=== PATIENT | female | born 1975 | race Caucasian/White ===

== ENCOUNTER 2024-02-10 13:26 | Inpatient (IN) | payer MEDICAID, SELFPAY ==
--- NOTE | ~2024-02-10 | CT_ITS ---
EXAMINATION: CT ABDOMEN AND PELVIS WITH CONTRAST CLINICAL INFORMATION: Abdominal pain COMPARISON: None TECHNIQUE: Multiple axial images were obtained from the superior aspect of the liver through the pubic symphysis after the administration of 100 mL of intravenous Omnipaque. Images were evaluated on independent dedicated 3-D workstation and 3-D images were reconstructed with concurrent radiologist supervision and subsequently interpreted. Oral contrast was not administered. This CT examination was performed using dose optimization techniques as appropriate, variously including the following: *Automated exposure control *Adjustment of mA and/or kV according to patient size (this includes techniques or standardized protocols for targeted exams where dose is matched to indication/reason for exam; i.e. extremities or head) *Use of iterative reconstruction technique DLP: 910 mGy-cm FINDINGS: LUNG BASES: The visualized lung bases are clear. CARDIOMEDIASTINUM: The visualized heart is normal in size without pericardial effusion. No coronary artery calcification. LIVER: Homogeneous in attenuation. Normal in size. GALLBLADDER: Noninflamed. BILIARY SYSTEM: No intrahepatic or extrahepatic biliary dilation. PANCREAS: Homogeneous in attenuation. SPLEEN: Normal in size. GENITOURINARY: Bilateral kidneys demonstrate symmetric enhancement. No perinephric fluid collection. No renal calculi. No hydroureteronephrosis. ADRENAL GLANDS: Unremarkable. REPRODUCTIVE: Uterus and and bilateral adnexa are unremarkable. GASTROINTESTINAL: The visualized alimentary tract is normal in course. Short segment proximal ascending colonic ileus, likely related to appendicitis No evidence of obstruction. APPENDIX: 9 mm appendicolith with associated appendiceal wall thickening, distention, and periappendiceal inflammation consistent with acute appendicitis. PERITONEUM: No pneumoperitoneum. No intra-abdominal fluid collection. VASCULATURE: The abdominal aorta is normal in course and caliber. LYMPH NODES: No pathologically enlarged abdominal or pelvic lymph nodes. SOFT TISSUES/MUSCULOSKELETAL: Multilevel degenerative changes, most pronounced at L5-S1. Left breast well-circumscribed breast mixed density (HU 28) mass measuring 2.[address]/CT abdomen pelvis w IV con IMPRESSION: 1. Acute appendicitis, likely secondary to obstructing appendicolith measuring 9 mm. No evidence of perforation. 2. Favor left breast cyst measuring 2.8 x 1.5 cm. Correlate with prior mammograms. If not already evaluated, recommend nonemergent evaluation with ultrasound to confirm its cystic nature. Fleischner guidelines were followed. . Electronically signed by: Chris Juarez DO 02/10/2024 08:49 PM EST
--- NOTE | ~2024-02-10 | CT_ITS ---
EXAMINATION: CT ABDOMEN AND PELVIS WITH CONTRAST CLINICAL INFORMATION: Pain. Status post appendectomy. COMPARISON: February 10, 2024 TECHNIQUE: Multidetector volumetric images were obtained from the superior aspect of the liver through the pubic symphysis following administration 85 mL of Omnipaque 350 intravenous contrast. Sagittal and coronal reformatted images were obtained on the technologist's workstation. Oral contrast: No This CT examination was performed using dose optimization techniques as appropriate, variously including the following: *Automated exposure control *Adjustment of mA and/or kV according to patient size (this includes techniques or standardized protocols for targeted exams where dose is matched to indication/reason for exam; i.e. extremities or head) *Use of iterative reconstruction technique DLP: 1003 mGy-cm FINDINGS: LUNG BASES: There is dependent bibasilar consolidation associated with minimal bilateral pleural effusions. LIVER, GALLBLADDER, AND BILIARY TREE: The liver is normal in size, shape, and attenuation. No focal hepatic lesion or biliary ductal dilatation is present. The gallbladder is unremarkable with no evidence of radiopaque gallstones, gallbladder wall thickening, or obvious pericholecystic inflammatory changes. PANCREAS: Unremarkable. SPLEEN: Unremarkable. ADRENAL GLANDS: Unremarkable. KIDNEYS AND URETERS: The kidneys are normal in size, shape, and attenuation. No hydronephrosis, hydroureter, or calculi seen. No perinephric stranding. BLADDER: Unremarkable. GASTROINTESTINAL TRACT: Retained stool. There is infiltrative change in the right lower quadrant. There are surgical clips along the base of the cecum. A drainage catheter extends the right lower quadrant. No fluid collection is seen. ABDOMINAL WALL: Periumbilical skin thickening as well as a small amount of subcutaneous emphysema in the umbilical region as well as along the left mid to lower abdominal wall. There is a vague oval nodular density associated with the lower left breast. LYMPH NODES: Normal. VASCULAR: Unremarkable. PELVIC VISCERA: Unremarkable. OSSEOUS STRUCTURES: There is diffuse thoracolumbar degenerative change moderate at L5-S1. CT/CT abdomen pelvis w IV con IMPRESSION: 1. Postoperative changes in the right lower quadrant with a drainage catheter in place. No fluid collection. 2. Bibasilar consolidation most consistent with with atelectasis associated with minimal pleural effusions. 3. Retained stool. 4. Skin thickening and subcutaneous emphysema in the periumbilical region as well as along the left mid to lower abdominal wall. Fleischner guidelines were followed. Electronically signed by: Familia Diaz MD 02/14/2024 04:27 AM MARIE BORDEN
[2024-02-10 13:41] VITALS: BP 136/79; PULSE 102; RESP 20; TEMP 36.6; O2SAT 95; BMI 39.1
--- NOTE | 2024-02-10 13:47 | ED.GENADULT ---
HPI - General Adult General Chief complaint: Abdominal Pain Stated complaint: Abd pain Time Seen by Provider: 02/10/24 18:04 History of Present Illness ED Provider: Mina SHEARER narrative: The patient is a 48-year-old woman who is generally in fairly good health. She is on no medications. She has a history of tubal ligation in 2005 but no other abdominal surgeries. She says that she has been having problems with the abdominal pain for 2 weeks, primarily in the right lower quadrant. She says that she thinks she had a fever a couple of night she is quite uncomfortable and came to the emergency room because of her discomfort. Has had nausea but no vomiting. Related Data Home Medications ?Medication ?Instructions ?Recorded ?Confirmed No Known Home Meds 02/10/24 02/10/24 Allergies Allergy/AdvReac Type Severity Reaction Status Date / Time Penicillins Allergy Severe Swelling Verified 02/10/24 13:46 Review of Systems Review of Systems: Yes all other systems are reviewed and are negative [facility] Social History Social History Household Members: Significant Other Housing: House Do you presently have visiting nurse or other home services: No Patient Tobacco Use Status: Current everyday Tobacco user Tobacco use type: Cigarette Cigarettes Per Day: 5 Smoked in Last 30 Days: Yes Patient Interested in Nicotine Replacement: No Patient Given Instructions on How to Stop Smoking: No Second Hand Smoke Exposure: No Use of substances other than those prescribed or required for medical reasons: Yes Substance Use Type: Marijuana Substance Use Frequency: Occasionally Last Used Substance: Weeks (ago) Currently Displaying Signs/Symptoms of Drug Intoxication Withdrawal: No Any prior treatment program specific to substance use: No Have you been hit, kicked, punched, or otherwise hurt by someone within the past year? If so, by whom?: No Do you feel safe in your current relationship?: No Current Relationship Is there a partner from a previous relationship who is making you feel unsafe now?: No Are you made to feel afraid or neglected: No Are you DNR?: No Advance Directives: No Advance Directives Information Provided: No Advance Directives on File: No Do you have a plan to hurt others: No Plan Recently lost weight without trying: No How much weight loss: Not applicable Eating poorly because of decreased appetite: No Nutrition screen score: 0 Nutrition Risks: No Nutritional Risk Patient : No : No Poor oral hygiene: No service: No Physical Exam ED Vital Signs: Vital Signs - 24 hr 02/10/24 13:41 02/10/24 18:12 Temperature 97.9 F 98.5 F Pulse Rate 102 H 96 Respiratory Rate 20 18 Blood Pressure 136/79 119/73 Pulse Oximetry 95 97 Oxygen Delivery Method Room Air Room Air BMI result Body Mass Index 39.1 Const Other: The patient is a 48-year-old woman who was awake and alert. She is pleasant and cooperative. She seems uncomfortable. HENMT Other: Face is symmetrical. Mucous membranes moist. Eyes General: appearance normal, both eyes and all related structures Neck Neck: Yes full ROM Resp Effort & Inspection: normal respiratory effort Auscultation: clear to auscultation bilaterally Cardio Rate: regular rate Rhythm: regular rhythm Heart sounds: S1 normal heart sound present and S2 normal heart sound present GI Other: The patient has generalized abdominal tenderness that is most significant in the right lower quadrant. She seems quite tender. Skin Other: Skin is dry and unremarkable Neuro Other: The patient is awake and alert with a normal mental status. Cranial nerves are grossly intact. She moves her extremities normally and appropriately. Extrem Other: No peripheral edema Course Course Course Narrative: RME: 48 yold female presents to the ED for generaniled abdominal pain for 2 weeks. positive for generalized tenderness on palaption . Medications Administered Generic Name Dose Route Start Last Admin Trade Name Freq PRN Reason Stop Dose Admin Acetaminophen 650 mg 02/10/24 20:24 02/11/24 05:48 Acetaminophen 325 Mg Tablet PO 650 mg Q6H PRN Administration Pain, Mild 1-3,fever,headache Hydromorphone HCl 0.5 mg 02/10/24 20:24 02/11/24 08:44 Hydromorphone Hcl 1 Mg/Ml Syringe IVPUSH 0.5 mg Q4H PRN Administration Pain, Severe (Pain Scale 7-10) Protocol Lactated Ringer's 1,000 mls @ 125 mls/hr 02/10/24 20:30 02/11/24 05:46 Lr IVCONT 125 mls/hr .Q8H ARIELLA Administration Metronidazole 500 mg in 100 mls @ 100 mls/hr 02/11/24 08:00 02/11/24 09:55 Flagyl IV Infused Q12H ARIELLA Infusion Lactated Ringer's 1,000 mls @ 80 mls/hr 02/11/24 11:05 02/11/24 11:08 Lr IVCONT 80 mls/hr .[id number] ARIELLA Administration Ondansetron HCl 4 mg 02/10/24 20:24 02/11/24 03:22 Ondansetron Hcl 4 Mg/2 Ml Vial IVPUSH 4 mg Q8H PRN Administration Nausea and Vomiting Sodium Chloride 3 ml 02/11/24 00:00 02/11/24 07:28 0.9 % Sodium Chloride Flush 3 Ml Syringe IVFLUSH Not Given QSHIFT ARIELLA Discontinued Medications Generic Name Dose Route Start Last Admin Trade Name Freq PRN Reason Stop Dose Admin Ceftriaxone Sodium 2 gm 02/10/24 20:01 02/10/24 20:13 Ceftriaxone Sodium 2 Gm Vial IVPUSH 02/10/24 20:02 2 gm ONCE ONE Administration Sodium Chloride 1,000 mls @ 999 mls/hr 02/10/24 18:15 02/10/24 21:29 Ns IV 02/10/24 19:15 Infused .Q1H1M ARIELLA Infusion Metronidazole 500 mg in 100 mls @ 100 mls/hr 02/10/24 20:01 02/10/24 21:29 Flagyl IV 02/10/24 21:00 Infused ONCE ONE Infusion Iohexol 85 ml 02/10/24 19:59 02/10/24 20:00 Iohexol 350 Mg/Ml 100 Ml Infus..Btl IV 02/10/24 20:00 85 ml ONCE ONE Administration Morphine Sulfate 4 mg 02/10/24 18:12 02/10/24 19:19 Morphine Sulfate 4 Mg/Ml Cartridge IVPUSH 02/10/24 18:13 4 mg ONCE ONE Administration Protocol Medical Decision Making Medical Decision Making [facility] Narrative: The patient is a 48-year-old female who presented complaining of 2 weeks of lower abdominal pain most prominent in the right lower quadrant. She seemed extremely tender[place] [address]. My concern was that she might have ruptured appendicitis more similar problem. Blood cultures were obtained. Her lactate was normal. She was started on ceftriaxone and metronidazole. I communicated with Dr. Herrera of General surgery that I was concerned that a person with 2 weeks of abdominal pain might have ruptured appendicitis. To our surprise the patient's CT scan was read as acute, non perforated appendicitis. The patient will be admitted to the hospital with likely plan for surgery in the morning. Lab Data 02/10/24 16:41 02/10/24 16:41 Labs: Lab Results 02/10/24 02/10/24 Range/Units 16:41 18:58 WBC 22.4 H (4.8-10.8) X10*3/uL RBC 4.49 (4.20-5.50) X10*6/uL Hgb 13.5 (12.0-16.0) g/dl Hct 38.9 (37.0-47.0) % MCV 86.6 (80.0-98.0) fL MCH 30.1 (27.0-33.0) pg MCHC 34.7 (31.0-35.0) g/dl RDW 13.8 (11.0-16.0) % Plt Count 224 (160-400) X10*3/uL MPV 10.2 (9.4-12.3) fL Immature Gran % (Auto) 0.6 H (0.0-0.4) % Neut % (Auto) 91.2 H (45-73) % Lymph % (Auto) 2.9 L (20-40) % Bennett % (Auto) 4.5 (2-11) % Eos % (Auto) 0.5 (0-4) % Baso % (Auto) 0.3 (0-2) % Lymph # (Auto) 0.7 L (1.2-4.9) X10*3/uL Bennett # (Auto) 1.0 (0.1-1.2) X10*3/uL Eos # (Auto) 0.1 (0.0-0.4) X10*3/uL Baso # (Auto) 0.1 (0.0-0.2) X10*3/uL Abs Immat Gran (auto) 0.14 H (0.00-0.03) X10*3/uL Absolute Neuts (auto) 20.4 H (2.0-8.3) x10*3/uL Absolute Nucleated RBC 0.000 (0.0-0.012) X10*3/uL Nucleated RBC % (auto) 0.0 (0.0-0.2) /100WBC Smear Tech's Comments VERIFIED PT 13.4 H (10.9-12.4) SEC INR 1.2 H (0.9-1.1) APTT 29.0 (26.0-36.8) SEC Sodium 134 L (135-145) mmol/L Potassium 3.6 (3.3-5.1) mmol/L Chloride 101 (96-108) mmol/L Carbon Dioxide 22 (22-29) mmol/L Anion Gap 15 (12-20) BUN 17 H (9-16) mg/dL Creatinine 0.82 (0.5-1.4) mg/dL Estim Creat Clear Calc 91.2 Estimated GFR > 60 Random Glucose 108 (60-115) mg/dL Lactic Acid 0.9 (0.5-2.0) mmol/L Calcium 9.4 (8.4-10.2) mg/dL Total Bilirubin 0.8 (0.0-1.0) mg/dL AST 17 (5-31) U/L ALT 14 (0-31) U/L Alkaline Phosphatase 74 (39-117) U/L C-Reactive Protein 25.58 H (< or = 0.50) mg/dL Total Protein 7.3 (6.5-8.0) g/dL Albumin 4.1 (3.5-5.0) g/dL Lipase 7 L (8-78) U/L Beta HCG, Quant < 2 mIU/mL Urine Color Yellow Urine Appearance Clear Urine pH 5.5 (5.0-9.0) Ur Specific [place] >= 1.030 H (1.005-1.025) Urine Protein 30 (1+) H (Neg-Trace) mg/dL Urine Glucose (UA) Negative (Negative) mg/dL Urine Ketones 15 (Negative) mg/dL Urine Blood Trace (Negative) Urine Nitrite Positive H (Negative) Ur Leukocyte Esterase Negative (Negative) Urine RBC 3-5 H (0-2) /HPF Urine WBC 6-10 (0-5) /HPF Ur Squamous Epith Cells >20 (0-2) /HPF Urine Bacteria 2+ (None Seen) Hyaline Casts 11-20 (0-2) /LPF Urine Test NEGATIVE (NEGATIVE) Discharge Plan Discharge Clinical Impression: Abdominal pain Patient Disposition: Admitted As Inpatient Interventions: Admission Worksheet (ED) Last Done: 02/10/24 21:25 Discharge Date/Time: 02/10/24 22:27
[2024-02-10 16:49] LABS: Basophils Absolute Auto 0.1 X10*3/uL (0.0-0.2); Basophils Percent Auto 0.3 % (0-2); Eosinophils Absolute Auto 0.1 X10*3/uL (0.0-0.4); Eosinophils Percent Auto 0.5 % (0-4); Hematocrit 38.9 % (37.0-47.0); Hemoglobin 13.5 g/dl (12.0-16.0); Imm Gran Abs Auto 0.14 X10*3/uL (0.00-0.03); Imm Gran Pct Auto 0.6 % (0.0-0.4); Lymphocytes Absolute Auto 0.7 X10*3/uL (1.2-4.9); Lymphocytes Percent Auto 2.9 % (20-40); MANUAL DIFF FLAG SCAN; Mean Corpuscular HGB Conc 34.7 g/dl (31.0-35.0); Mean Corpuscular Hemoglobin 30.1 pg (27.0-33.0); Mean Corpuscular Volume 86.6 fL (80.0-98.0); Mean Platelet Volume 10.2 fL (9.4-12.3); Monocytes Percent Auto 4.5 % (2-11); Neutrophils Absolute Auto 20.4 x10*3/uL (2.0-8.3); Neutrophils Percent Auto 91.2 % (45-73); Platelet Count 224 X10*3/uL (160-400); Red Blood Count 4.49 X10*6/uL (4.20-5.50); Red Cell Distribution Width 13.8 % (11.0-16.0); SCAN SMEAR FLAG 1; White Blood Count 22.4 X10*3/uL (4.8-10.8)
[2024-02-10 16:59] LABS: INTERNATIONAL NORM RATIO 1.2 (0.9-1.1); Prothrombin Time 13.4 SEC (10.9-12.4)
[2024-02-10 17:23] LABS: Albumin Level 4.1 g/dL (3.5-5.0); Anion Gap 15 (12-20); Aspartate Amino Transferase 17 U/L (5-31); Bilirubin Total 0.8 mg/dL (0.0-1.0); Blood Urea Nitrogen 17 mg/dL (9-16); Calcium 9.4 mg/dL (8.4-10.2); Carbon Dioxide 22 mmol/L (22-29); Chloride 101 mmol/L (96-108); Creatinine Clr Calc Pharmacy 91.2; Estimated Glomerular Filt Rate > 60; Glucose Random 108 mg/dL (60-115); Lipase 7 U/L (8-78); Potassium 3.6 mmol/L (3.3-5.1); Sodium 134 mmol/L (135-145); Total Protein 7.3 g/dL (6.5-8.0)
[2024-02-10 17:30] LABS: HCG Quantitative < 2 mIU/mL
[2024-02-10 17:33] LABS: SLIDE REVIEW VERIFIED
[2024-02-10 18:12] VITALS: BP 119/73; PULSE 96; RESP 18; TEMP 36.9; O2SAT 97
[2024-02-10 18:52] LABS: Alanine Aminotransferase 14 U/L (0-31); Alkaline Phosphatase 74 U/L (39-117); C Reactive Protein 25.58 mg/dL (< or = 0.50)
[2024-02-10 19:10] LABS: Appearance Urine Clear; Color Urine Yellow; Glucose Urine UA Negative (Negative); Leukocyte Esterase Urine Negative (Negative); Nitrite Urine Positive (Negative); PH 5.5 (5.0-9.0); Specific Gravity - Urine >= 1.030 (1.005-1.025); UMIC TRIGGER UACC YES; Urine Blood Trace (Negative); Urine Ketones 15 mg/dL (Negative); Urine Protein 30 (1+) mg/dL (Neg-Trace)
[2024-02-10 19:14] LABS: UPreg QC Valid YES; Urine Pregnancy NEGATIVE (NEGATIVE)
[2024-02-10] MEDS: 0.9 % Sodium Chloride 1,000 ML 999 ML IV (19:18)
[2024-02-10] MEDS: Morphine Sulfate 4 MG/ML CARTRIDGE IVPUSH (19:19)
[2024-02-10 19:27] LABS: Lactic Acid 0.9 mmol/L (0.5-2.0)
[2024-02-10 19:43] LABS: Bacteria Urine 2+ (None Seen); Squamous Epithelial Cell Urine >20 /HPF (0-2); UACC Culture Trigger YES
[2024-02-10] MEDS: iohexoL 350 MG/ML 100 ML INFUS..BTL 85 ML IV (20:00)
[2024-02-10] MEDS: metroNIDAZOLE/NS 500 MG/100 ML PIGGYBACK 100 MG IV (20:13)
[2024-02-10] MEDS: cefTRIAXone sodium 2 GM VIAL IVPUSH (20:13)
[2024-02-10 21:13] VITALS: BP 125/70; PULSE 92; RESP 18; TEMP 37.8; O2SAT 97
[2024-02-10] MEDS: Acetaminophen 325 MG TABLET 650 MG PO (21:15)
[2024-02-10] MEDS: Lactated Ringers 1,000 ML 125 ML IVCONT (21:16)
[2024-02-10] MEDS: HYDROmorphone HCl 1 MG/ML SYRINGE 0.5 MG IVPUSH (21:16)
--- NOTE | 2024-02-10 21:24 | PC.NURSE ---
this rn assumed care of pt @ 1900. pt medicated according to apr. oral temp of 100.0 pt medicated with prn tylenol
--- NOTE | 2024-02-10 21:29 | PHA.MEDREC ---
Addendum entered by Forest Coronado RPh 02/10/24 21:34: Reviewed by [facility]. Original Note: Pharmacy Consult ? Medication Reconciliation Pharmacy has completed the medication reconciliation. Patient states she doesn't take any medication. If needed she will take Tylenol PM.
[2024-02-10 22:21] VITALS: BMI 39.6
[2024-02-10 22:25] VITALS: BP 109/55; PULSE 86; RESP 14; TEMP 36.4; O2SAT 96
[2024-02-11] VITALS (12 sets, daily range): BP systolic 108–128; BP diastolic 60–97; PULSE 72–89; RESP 12–20; TEMP 36.1–37.3; O2SAT 94–98
[2024-02-11] MEDS: HYDROmorphone HCl 1 MG/ML SYRINGE 0.5 MG IVPUSH ×3 (03:17→19:20)
[2024-02-11] MEDS: ondansetron HCL 4 MG/2 ML VIAL IVPUSH ×2 (03:22→19:19)
[2024-02-11] MEDS: Lactated Ringers 1,000 ML 125 ML IVCONT ×3 (05:46→19:13)
[2024-02-11] MEDS: Acetaminophen 325 MG TABLET 650 MG PO (05:48)
--- NOTE | 2024-02-11 07:49 | PM.HPGS ---
History of Present Illness History of Present Illness Date of Service: 02/11/24 Chief complaint: Abd pain Narrative: Qian Pike is a 48 year old female who presents here with what she states has been 2 weeks of abdominal pain with nausea, vomiting, loose stool. She has finally decided to present to the emergency department for further investigation and evaluation. Workup which included CT scan demonstrated findings demonstrate uncomplicated acute appendicitis. Chart was reviewed and patient evaluated. Past surgical history tubal ligation. PMFSH Social History Social History Household Members: Significant Other Housing: House Do you presently have visiting nurse or other home services: No Patient Tobacco Use Status: Current everyday Tobacco user Tobacco use type: Cigarette Cigarettes Per Day: 3 Smoked in Last 30 Days: Yes Patient Interested in Nicotine Replacement: No Patient Given Instructions on How to Stop Smoking: No Second Hand Smoke Exposure: No Use of substances other than those prescribed or required for medical reasons: Yes Substance Use Type: Marijuana Substance Use Frequency: Occasionally Last Used Substance: Weeks (ago) Currently Displaying Signs/Symptoms of Drug Intoxication Withdrawal: No Any prior treatment program specific to substance use: No Have you been hit, kicked, punched, or otherwise hurt by someone within the past year? If so, by whom?: No Do you feel safe in your current relationship?: No Current Relationship Is there a partner from a previous relationship who is making you feel unsafe now?: No Are you made to feel afraid or neglected: No Advance Directives: No Advance Directives Information Provided: No Do you have a plan to hurt others: No Plan Recently lost weight without trying: No How much weight loss: Not applicable Eating poorly because of decreased appetite: No Nutrition screen score: 0 Nutrition Risks: No Nutritional Risk Patient : No : No Poor oral hygiene: No Meds Allergies Allergy/AdvReac Type Severity Reaction Status Date / Time Penicillins Allergy Severe Swelling Verified 02/10/24 13:46 Active Medications: Current Medications Acetaminophen (Acetaminophen 325 Mg Tablet) 650 mg PO Q6H PRN PRN Reason: Pain, Mild 1-3,fever,headache Last Admin: 02/11/24 05:48 Dose: 650 mg Calcium Carbonate (Calcium Carbonate 750 Mg Tab.Chew) 750 mg PO Q4H PRN PRN Reason: Heartburn Hydromorphone HCl (Hydromorphone Hcl 1 Mg/Ml Syringe) 0.5 mg IVPUSH Q4H PRN; Protocol PRN Reason: Pain, Severe (Pain Scale 7-10) Last Admin: 02/11/24 03:17 Dose: 0.5 mg Lactated Ringer's (Lr) 1,000 mls @ 125 mls/hr IVCONT .Q8H ARIELLA Last Admin: 02/11/24 05:46 Dose: 125 mls/hr Metronidazole (Flagyl) 500 mg in 100 mls @ 100 mls/hr IV Q12H ARIELLA Magnesium Hydroxide (Milk Of Magnesia 30 Ml Oral.Susp) 30 ml PO DAILY PRN PRN Reason: Constipation Melatonin (Melatonin 3 Mg Tablet) 6 mg PO BEDTIME PRN PRN Reason: Insomnia Ondansetron HCl (Ondansetron Hcl 4 Mg/2 Ml Vial) 4 mg IVPUSH Q8H PRN PRN Reason: Nausea and Vomiting Last Admin: 02/11/24 03:22 Dose: 4 mg Sodium Chloride (0.9 % Sodium Chloride Flush 3 Ml Syringe) 3 ml IVFLUSH QSHIFT ARIELLA Last Admin: 02/11/24 07:28 Dose: Not Given Home Medications ?Medication ?Instructions ?Recorded ?Confirmed ?Last Taken ?Type No Known Home Meds 02/10/24 02/10/24 Unknown History Physical Exam Vital Signs: Vital Signs: Last Vital Signs Temp 98.5 F 02/11/24 07:05 Pulse 89 02/11/24 07:05 Resp 16 02/11/24 07:05 BP 108/60 02/11/24 07:05 Pulse Ox 94 02/11/24 07:05 O2 Del Method Room Air 02/11/24 07:05 BMI result Body Mass Index 39.6 Chest: Other: Chest breath sounds bilaterally, HS 1 in 2 GI: Other: Abdomen corpulent, localized right lower quadrant tenderness. No evidence of diffuse guarding, rebound, or rigidity. Results Results Labs: Short CBC 02/10/24 Range/Units 16:41 WBC 22.4 H (4.8-10.8) X10*3/uL Hgb 13.5 (12.0-16.0) g/dl Hct 38.9 (37.0-47.0) % Plt Count 224 (160-400) X10*3/uL BMP 02/10/24 16:41 Sodium 134 L Potassium 3.6 Chloride 101 Carbon Dioxide 22 BUN 17 H Creatinine 0.82 Calcium 9.4 Liver Function 02/10/24 Range/Units 16:41 Total Bilirubin 0.8 (0.0-1.0) mg/dL AST 17 (5-31) U/L ALT 14 (0-31) U/L Alkaline Phosphatase 74 (39-117) U/L Albumin 4.1 (3.5-5.0) g/dL Urine 02/10/24 Range/Units 18:58 Urine Color Yellow Urine Appearance Clear Urine pH 5.5 (5.0-9.0) Ur Specific [place] >= 1.030 H (1.005-1.025) Urine Protein 30 (1+) H (Neg-Trace) mg/dL Urine Glucose (UA) Negative (Negative) mg/dL Urine Test NEGATIVE (NEGATIVE) Assessment and Plan (1) Acute appendicitis: Status: Acute Plan Risks, benefits, alternatives laparoscopic possible open appendectomy were reviewed with the patient and included but not limited to bleeding, infection, numbness, pain, scarring, bowel or bladder injury or leak and the patient wishes to proceed. All questions answered. She will be an add on case for today. Quality Stroke Does the patient have a stroke diagnosis?: No VTE Prior VTE?: No VTE Risk Level:: Surgical - low VTE Device Contraindication: N/A - Device Ordered VTE Drug Contraindication: Treatment Not Indicated Procedures Date of Service Date of Service: 02/11/24
[2024-02-11] MEDS: metroNIDAZOLE/NS 500 MG/100 ML PIGGYBACK 100 MG IV ×2 (08:39→19:31)
--- NOTE | 2024-02-11 10:04 | PM.EVENT ---
Event Note Date of Service: 02/13/24 Event Note: 48-year-old female, morbidly obese, who says she has had this right lower quadrant pain for about 4 days. She does state that she has had some vague pains on her abdomen for about 2 weeks now. However, this right lower quadrant pain started about 4 days ago. She is just visiting the area from [place]. She denies significant medical problems. Examination shows tenderness on right lower quadrant WBC elevated I have reviewed her CAT scan images - there was note of stranding around the appendix with appendicoliths consistent with acute appendicitis I explained to her the technique of laparoscopic appendectomy and possible open appendectomy. I reviewed the risks including but not limited to bleeding, infections, staple line leak, injury to other organs including bowel and the urinary tract, abscess formation, postop pain, as well as the benefits and alternatives. She understands and has given consent. Time Spent With Patient Time: Total time managing care of this patient today ____ minutes.
--- NOTE | 2024-02-11 11:05 | MHC.CM.PN ---
PT REPORTS SHE LIVES IN [facility] AND CAME HERE 01/29/24 TO HELP A FRIEND SHE SAYS SHE THEN GOT ILL AND HAS BEEN HERE SINCE, BUT WILL BE RETURNING ONCE IMPROVED SHE REPORTS SHE IS INDEPENDENT WITH ALL CARE AND USES A CANE PRN SHE SAYS SHE HAS A PCP AT [facility] [place] NO HCP, SHE WAS ENCOURAGED TO COMPLETE ONE WITH HER PCP DCP: HOME NO SERVICES VIA PRIVATE TRANSPORT
[2024-02-11] MEDS: Lactated Ringers 1,000 ML 80 ML IVCONT (11:08)
[2024-02-11] MEDS: levoFLOXacin/D5W 500 MG/100 ML PIGGYBACK 100 MG IV (13:00)
--- NOTE | 2024-02-11 13:25 | HO.ANESPROP2 ---
[facility] Active Problems Active Problems: All Active Problems Acute appendicitis (Acute) Abdominal pain (Acute) Family History Family history of problems with anesthesia: No Surgical History History of Problems with Anesthesia: No Social History Social History Household Members: Significant Other Housing: House Do you presently have visiting nurse or other home services: No Patient Tobacco Use Status: Current everyday Tobacco user Tobacco use type: Cigarette Cigarettes Per Day: 5 Smoked in Last 30 Days: Yes Patient Interested in Nicotine Replacement: No Patient Given Instructions on How to Stop Smoking: No Second Hand Smoke Exposure: No Use of substances other than those prescribed or required for medical reasons: Yes Substance Use Type: Marijuana Substance Use Frequency: Occasionally Last Used Substance: Weeks (ago) Currently Displaying Signs/Symptoms of Drug Intoxication Withdrawal: No Any prior treatment program specific to substance use: No Have you been hit, kicked, punched, or otherwise hurt by someone within the past year? If so, by whom?: No Do you feel safe in your current relationship?: No Current Relationship Is there a partner from a previous relationship who is making you feel unsafe now?: No Are you made to feel afraid or neglected: No Are you DNR?: No Advance Directives: No Advance Directives Information Provided: No Advance Directives on File: No Do you have a plan to hurt others: No Plan Recently lost weight without trying: No How much weight loss: Not applicable Eating poorly because of decreased appetite: No Nutrition screen score: 0 Nutrition Risks: No Nutritional Risk Patient : No : No Poor oral hygiene: No service: No Meds Allergies Allergy/AdvReac Type Severity Reaction Status Date / Time Penicillins Allergy Severe Swelling Verified 02/10/24 13:46 Active Medications: Current Medications Acetaminophen (Acetaminophen 325 Mg Tablet) 650 mg PO Q6H PRN PRN Reason: Pain, Mild 1-3,fever,headache Last Admin: 02/11/24 05:48 Dose: 650 mg Calcium Carbonate (Calcium Carbonate 750 Mg Tab.Chew) 750 mg PO Q4H PRN PRN Reason: Heartburn Hydromorphone HCl (Hydromorphone Hcl 1 Mg/Ml Syringe) 0.5 mg IVPUSH Q4H PRN; Protocol PRN Reason: Pain, Severe (Pain Scale 7-10) Last Admin: 02/11/24 08:44 Dose: 0.5 mg Lactated Ringer's (Lr) 1,000 mls @ 125 mls/hr IVCONT .Q8H [facility] Last Admin: 02/11/24 05:46 Dose: 125 mls/hr Metronidazole (Flagyl) 500 mg in 100 mls @ 100 mls/hr IV Q12H [facility] Last Infusion: 02/11/24 09:55 Dose: Infused Lactated Ringer's (Lr) 1,000 mls @ 80 mls/hr IVCONT .[id number] [facility] Last Admin: 02/11/24 11:08 Dose: 80 mls/hr Levofloxacin (Levaquin) 500 mg in 100 mls @ 100 mls/hr IV Q24H [facility] Magnesium Hydroxide (Milk Of Magnesia 30 Ml Oral.Susp) 30 ml PO DAILY PRN PRN Reason: Constipation Melatonin (Melatonin 3 Mg Tablet) 6 mg PO BEDTIME PRN PRN Reason: Insomnia Ondansetron HCl (Ondansetron Hcl 4 Mg/2 Ml Vial) 4 mg IVPUSH Q8H PRN PRN Reason: Nausea and Vomiting Last Admin: 02/11/24 03:22 Dose: 4 mg Sodium Chloride (0.9 % Sodium Chloride Flush 3 Ml Syringe) 3 ml IVFLUSH QSHIFT [facility] Last Admin: 02/11/24 07:28 Dose: Not Given Home Medications ?Medication ?Instructions ?Recorded ?Confirmed ?Last Taken ?Type No Known Home Meds 02/10/24 02/10/24 Unknown History Exam Height,Weight and Vital Signs: Height 5 ft 2 in Weight 98.3 kg Last Vital Signs Temp 99.2 F 02/11/24 11:02 Pulse 82 02/11/24 11:02 Resp 16 02/11/24 11:02 BP 113/67 02/11/24 11:02 Pulse Ox 98 02/11/24 11:02 O2 Del Method Room Air 02/11/24 11:02 Pertinent Lab Results Pertinent Lab Results: iLaboratory Tests 02/10/24 02/10/24 16:41 18:58 WBC 22.4 H RBC 4.49 Hgb 13.5 Hct 38.9 MCV 86.6 MCH 30.1 MCHC 34.7 RDW 13.8 Plt Count 224 MPV 10.2 Immature Gran % (Auto) 0.6 H Neut % (Auto) 91.2 H Lymph % (Auto) 2.9 L [place] % (Auto) 4.5 Eos % (Auto) 0.5 Baso % (Auto) 0.3 Lymph # (Auto) 0.7 L [place] # (Auto) 1.0 Eos # (Auto) 0.1 Baso # (Auto) 0.1 Abs Immat Gran (auto) 0.14 H Absolute Neuts (auto) 20.4 H Absolute Nucleated RBC 0.000 Nucleated RBC % (auto) 0.0 Smear Tech's Comments VERIFIED PT 13.4 H INR 1.2 H APTT 29.0 Sodium 134 L Potassium 3.6 Chloride 101 Carbon Dioxide 22 Anion Gap 15 BUN 17 H Creatinine 0.82 Estim Creat Clear Calc 91.2 Estimated GFR > 60 Random Glucose 108 Lactic Acid 0.9 Calcium 9.4 Total Bilirubin 0.8 AST 17 ALT 14 Alkaline Phosphatase 74 C-Reactive Protein 25.58 H Total Protein 7.3 Albumin 4.1 Lipase 7 L Beta HCG, Quant < 2 Urine Color Yellow Urine Appearance Clear Urine pH 5.5 Ur Specific [place] >= 1.030 H Urine Protein 30 (1+) H Urine Glucose (UA) Negative Urine Ketones 15 Urine Blood Trace Urine Nitrite Positive H Ur Leukocyte Esterase Negative Urine RBC 3-5 H Urine WBC 6-10 Ur Squamous Epith Cells >20 Urine Bacteria 2+ Hyaline Casts 11-20 Urine Test NEGATIVE Airway Mallampati Class: III TM Dist: >3cm Neck ROM: Full Assessment and Plan Assessment Anesthesia Assessment: Anesthesia Plan Discussed and Chart Reviewed Final Anesthetic Review Family History of Problems with Anesthesia: No History of Problems with Anesthesia: No NPO: Yes ASA Class: III and Emergency Final Preanesthetic Review: No Changes in Pt Med Stat, Meds/Allgs Chart Reviewed, Consent Obtained/Reviewed, Anes Risks/Benef Reviewed and DNR Form (If Appl.) Patient Risk: Intermediate Procedure Risk: Intermediate Anesthetic Plan Anesthetic Plan: GA Disposition: Standard PACU
--- NOTE | 2024-02-11 14:06 | P.OP_ITS ---
Operative Note Operative Note Date of Service: 02/11/24 Narrative: Preop diagnosis: Acute appendicitis Postop diagnosis: Acute gangrenous appendicitis; the entire appendix was gangrenous but with a viable base; severe induration and inflammatory changes surrounding the appendix Procedure: Laparoscopic appendectomy Surgeon: Ron Brandt MD The patient is a 48-year-old female admitted by Dr. Herrera for acute appendicitis last night. I explained to her the technique of laparoscopic appendectomy. She understood the risks including but not limited to bleeding, staple line leak, abscesses, as well as the benefits and alternatives. She had given consent. She was brought to the operating room. She was placed in supine position under general anesthesia via endotracheal tube. A Pedraza catheter had been inserted. She was receiving IV antibiotics as ordered preoperatively. The left arm was tucked at the side. The abdomen was prepped and draped in the usual sterile fashion. A surgical time-out was done. I made a short incision in the infraumbilical margin using blade 15. This was carried down through the full-thickness of the skin and subcutaneous fat down to the fascia. The fascia was incised. The peritoneum was entered. Through this incision a Jean port was introduced. Pneumoperitoneum was introduced to a pressure of 15 mm Hg. From here on the rest of the procedure was done under vision with the 10 mm 0 degree scope. The patient was placed in a steep head-down position and [id number] position. With laparoscopic visualization and inserted a 5/12 mm port in the left lower quadrant. A 5 mm ports introduced to the suprapubic margin through a small stab incision as well We used graspers to gently dissect the right lower quadrant. There was note of very dense inflammatory changes along with adherent omentum and the right lower quadrant we. We had to carefully peel this off using the graspers. By doing so was able to visualize the appendix. The appendix was gangrenous. This was very indurated, and enlarged. There was a lot of inflammatory changes surrounding this along with the her indurated mesentery. This was adherent to the adjacent small bowel loops which were also erythematous. This was also curled up a little bit to the sidewall. I had to do careful blunt dissection to separate this from the adjacent bowel loops as well as pelvic sidewall. Eventually I was able to expose the entire appendix. This was gangrenous throughout the entire visible length. I applied a grasper gently on the very indurated mesentery to retract this. I was able to therefore see the base. I gently dissected the base of the appendix using [place] dissector and by doing so was able to visualize a very short viable segment at the base. This was enough to apply the staple line. I created a mesenteric window fully. I then used an Endo-HARRIS 30 mm stapler and this was positioned across the base. This was fired and the appendix was transected I retracted the appendix to put this on stretch by applying a grasper on the a ttached mesentery which was very indurated. I serially divided the mesentery of the appendix using the LigaSure. I was able to completely separate the appendix and this was retrieved through an endobag through the left lower quadrant incision. I reinserted all ports and re-insufflated. I examined the right lower quadrant. The staple line appeared intact and viable. There were no injuries on the surrounding small bowel loops and cecum There was note of good hemostasis In view of the presence of gangrene and very friable appendix, I decided to leave a BRUNILDA drain. The BRUNILDA drain was passed through the well quadrant port and was positioned alongside the staple line at the right gutter. This was brought out through the suprapubic incision. This was secured to the skin with nylon 3- 0 sutures I reinserted the ports and re-examined and the drain appeared to be in good position. I observed all 4 quadrants and there was no other pathology or any evidence of any bowel injury I therefore desufflated through the port sites. I removed all ports. I closed the fascia of the umbilical incision with a [id number] Polysorb 0 stitch All skin incision was closed with Polysorb 4-0 subcuticular running sutures. All incisions were infiltrated with Marcaine 0.5% for postop analgesia. Dressings were applied. The procedure was completed The patient tolerated procedure well. There were no immediate complications. Initial and final counts of sponges and instruments were correct. Estimated blood loss was about 25 cc The patient was extubated without difficulty and transferred to recovery room with stable vital signs.
--- NOTE | 2024-02-11 14:38 | PC.NURSE ---
per SUPPLY CHAIN INTERN, levaquin given in OR
[2024-02-11] MEDS: oxyCODONE HCl Immed Release 5 MG TABLET 10 MG PO (17:43)
--- NOTE | 2024-02-11 19:07 | PM.EVENT ---
Event Note Date of Service: 02/11/24 Event Note: seen postop s/p lap appy- gangrenous appendicitis says she feels better - different pain now looks well BRUNILDA drain - scanty serosanguinous diet as tolerated pain mgt her friend Nona was updated by phone Time Spent With Patient Time: Total time managing care of this patient today ____ minutes.
[2024-02-11] MEDS: Acetaminophen 1,000 MG/100 ML PIGGYBACK 400 MG IV (19:13)
[2024-02-11] MEDS: vancomycin/NS 2,000 MG/500 ML PLAST..BAG 250 MG IV (23:24)
[2024-02-12] VITALS (7 sets, daily range): BP systolic 116–155; BP diastolic 71–89; PULSE 65–80; RESP 16–20; TEMP 36–36.8; O2SAT 93–96
--- NOTE | 2024-02-12 00:11 | P.EN_ITS ---
Event Note Date of Service: 02/12/24 Event Note: The patient was admitted to surgery for appendicitis and is now status post- appendectomy. Blood cultures have grown gram-positive cocci in chains, most likely Streptococcus, though Staphylococcus cannot yet be excluded. Vancomycin has been initiated, and treatment will be adjusted based on sensitivity results. Time Spent With Patient Time: Total time managing care of this patient today ____ minutes.
[2024-02-12] MEDS: Acetaminophen 1,000 MG/100 ML PIGGYBACK 400 MG IV ×3 (01:42→14:07)
[2024-02-12] MEDS: HYDROmorphone HCl 1 MG/ML SYRINGE 0.5 MG IVPUSH ×4 (05:32→21:59)
[2024-02-12] MEDS: Lactated Ringers 1,000 ML 125 ML IVCONT ×2 (05:33→14:07)
[2024-02-12 06:43] LABS: Hematocrit 31.6 % (37.0-47.0); Hemoglobin 10.6 g/dl (12.0-16.0); Mean Corpuscular HGB Conc 33.5 g/dl (31.0-35.0); Mean Corpuscular Hemoglobin 29.9 pg (27.0-33.0); Mean Corpuscular Volume 89.3 fL (80.0-98.0); Mean Platelet Volume 10.7 fL (9.4-12.3); Platelet Count 206 X10*3/uL (160-400); Red Blood Count 3.54 X10*6/uL (4.20-5.50); Red Cell Distribution Width 13.6 % (11.0-16.0); White Blood Count 9.9 X10*3/uL (4.8-10.8)
[2024-02-12 07:12] LABS: Anion Gap 13 (12-20); Blood Urea Nitrogen 13 mg/dL (9-16); Carbon Dioxide 22 mmol/L (22-29); Chloride 104 mmol/L (96-108); Creatinine Clr Calc Pharmacy 112.5; Estimated Glomerular Filt Rate > 60; Glucose Random 142 mg/dL (60-115); Sodium 135 mmol/L (135-145)
--- NOTE | 2024-02-12 07:26 | PHA.PROG ---
Admission Date/Time: February 10, 2024 20:25 Indication: Bacteremia Weight in k.3 kg Adjusted body weight in Kg: [place] body weight in Kg: Obesity Dosing Indication % IBW: Serum Creatinine - Last 168 Hours 02/10/24 02/12/24 16:41 05:56 Creatinine 0.82 0.67 Estimated CrCl and GFR - Last 168 Hours 02/10/24 02/12/24 16:41 05:56 Estim Creat Clear Calc 91.2 112.5 Estimated GFR > 60 > 60 Vancomycin Loading Dose: 2000mg x 1 Current Vancomycin Dosing Regimen: 1500mg Q12H Vancomycin Monitoring using AUC goal of 400 - 600 range with trough as surrogate marker: 553mg/L Date and Time for next Vancomycin Level to be drawn: 02/12 @0900 Pharmacist Comments on Vancomycin Plan: Predicted trough of 16.8 mg/L; pt has BMI of 39.6- monitor for dose dumping Vancomycin dosing will take advantage of Xyo as a clinical decision support tool that uses Bayesian modeling to calculate individual patient's pharmacokinetic parameters and forecast the patient's drug concentration time course with the target goal AUC 24 range of 400 - 600 mg/L/hr.
[2024-02-12] MEDS: metroNIDAZOLE/NS 500 MG/100 ML PIGGYBACK 100 MG IV ×2 (07:40→20:56)
[2024-02-12 07:57] LABS: Calcium 8.5 mg/dL (8.4-10.2)
[2024-02-12] MEDS: vancomycin HCL 1,500 MG in 0.9 % Sodium Chloride 500 ML 333.33 MG IV ×2 (10:34→22:51)
[2024-02-12] MEDS: levoFLOXacin/D5W 500 MG/100 ML PIGGYBACK 100 MG IV (12:25)
--- NOTE | 2024-02-12 13:00 | PM.PNGS ---
Subjective Subjective Date of Service: 02/12/24 Interval history: Patient is feeling somewhat better but does not think she is ready to go home. She is tolerating her diet. She has been up out of bed. States she has significant incisional discomfort which is expected. Physical Exam Vital Signs: Vital Signs: Last Vital Signs Temp 97.4 F 02/12/24 07:24 Pulse 65 02/12/24 07:24 Resp 16 02/12/24 07:24 BP 134/85 02/12/24 07:24 Pulse Ox 94 02/12/24 07:24 O2 Del Method Room Air 02/12/24 07:24 O2 Flow Rate 2 02/11/24 14:50 BMI result Body Mass Index 39.6 GI: Other: Abdomen [place], soft, benign. All dressings clean dry and intact. Serous drainage from BRUNILDA drain. Objective Data Active Medications Acetaminophen (Acetaminophen 325 Mg Tablet) 650 mg PO Q6H PRN PRN Reason: Pain, Mild 1-3,fever,headache Last Admin: 02/11/24 05:48 Dose: 650 mg Documented By: JORDAN Calcium Carbonate (Calcium Carbonate 750 Mg Tab.Chew) 750 mg PO Q4H PRN PRN Reason: Heartburn Hydromorphone HCl (Hydromorphone Hcl 1 Mg/Ml Syringe) 0.5 mg IVPUSH Q4H PRN; Protocol PRN Reason: Pain, Severe (Pain Scale 7-10) Last Admin: 02/12/24 10:41 Dose: 0.5 mg Documented By: ANA Lactated Ringer's (Lr) 1,000 mls @ 125 mls/hr IVCONT .Q8H [facility] Last Admin: 02/12/24 05:33 Dose: 125 mls/hr Documented By: JORDAN Metronidazole (Flagyl) 500 mg in 100 mls @ 100 mls/hr IV Q12H [facility] Last Infusion: 02/12/24 09:06 Dose: Infused Documented By: ANA Levofloxacin (Levaquin) 500 mg in 100 mls @ 100 mls/hr IV Q24H [facility] Last Admin: 02/12/24 12:25 Dose: 100 mls/hr Documented By: ANA Acetaminophen (Ofirmev) 1,000 mg in 100 mls @ 400 mls/hr IV Q6H [facility] Stop: 12/25/24 14:14 Last Infusion: 02/12/24 08:17 Dose: Infused Documented By: ANA Vancomycin HCl 1,500 mg/ (Sodium Chloride) 500 mls @ 333.333 mls/hr IV Q12H [facility] Last Infusion: 02/12/24 12:31 Dose: Infused Documented By: ANA Magnesium Hydroxide (Milk Of Magnesia 30 Ml Oral.Susp) 30 ml PO DAILY PRN PRN Reason: Constipation Melatonin (Melatonin 3 Mg Tablet) 6 mg PO BEDTIME PRN PRN Reason: Insomnia Naloxone HCl (Naloxone Hcl 0.4 Mg/Ml Vial) 0.04 mg IVPUSH Q5M PRN PRN Reason: Excessive sedation or RR < 8 Ondansetron HCl (Ondansetron Hcl 4 Mg/2 Ml Vial) 4 mg IVPUSH Q8H PRN PRN Reason: Nausea and Vomiting Last Admin: 02/11/24 19:19 Dose: 4 mg Documented By: JORDAN Oxycodone HCl (Oxycodone Hcl Immed Release 5 Mg Tablet) 10 mg PO Q4H PRN PRN Reason: Pain, Moderate(Pain Scale 4-6) Last Admin: 02/11/24 17:43 Dose: 10 mg Documented By: JIMENEZ Pharmacy Consult (Consult Rx Vancomycin Dosing) 1 each MISCELLANE DAILY PRN PRN Reason: Consult order Sodium Chloride (0.9 % Sodium Chloride Flush 3 Ml Syringe) [address] [facility] Last Admin: 02/12/24 07:43 Dose: Not Given Documented By: ANA Non-Admin Reason: IV Running Labs 02/12/24 05:56 02/12/24 05:56 Labs: Laboratory Results - last 24 hr 02/12/24 05:56 MCV 89.3 MCH 29.9 MCHC 33.5 RDW 13.6 Plt Count 206 MPV 10.7 Absolute Nucleated RBC 0.000 Nucleated RBC % (auto) 0.0 Anion Gap 13 Estim Creat Clear Calc 112.5 Estimated GFR > 60 Random Glucose 142 H Calcium 8.5 D Microbiology Microbiology Results: Microbiology 02/10/24 Unknown Urine Culture - Final Urine clean catch - Clean Catch Midstream 02/10/24 19:07 Blood Culture - Preliminary Blood - Venous Prelim: GPC Gram Stain only 02/10/24 18:58 Blood Culture - Preliminary Blood - Venous Prelim: GPC Gram Stain only Procedures Date of Service Date of Service: 02/12/24 Progress Note: A&P Assessment and plan (1) Status post laparoscopic appendectomy: Status: Acute Plan Continue current plan; diet as tolerated, IV antibiotics, encourage incentive spirometry, out of bed, BRUNILDA drainage Time Spent With Patient Time: Total time managing care of this patient today ____ minutes. Quality Stroke Does the patient have a stroke diagnosis?: No VTE Prior VTE?: No VTE Risk Level:: Surgical - low VTE Device Contraindication: N/A - Device Ordered VTE Drug Contraindication: Treatment Not Indicated
[2024-02-13 02:56] VITALS: BP 171/84; PULSE 69; RESP 16; TEMP 36; O2SAT 95
[2024-02-13] MEDS: HYDROmorphone HCl 1 MG/ML SYRINGE 0.5 MG IVPUSH ×2 (03:00→19:09)
[2024-02-13] MEDS: oxyCODONE HCl Immed Release 5 MG TABLET 10 MG PO ×4 (04:16→17:30)
[2024-02-13] MEDS: Acetaminophen 325 MG TABLET 650 MG PO ×3 (04:16→17:30)
[2024-02-13 07:06] VITALS: BP 138/88; PULSE 69; RESP 18; TEMP 36.3; O2SAT 92
[2024-02-13] MEDS: metroNIDAZOLE/NS 500 MG/100 ML PIGGYBACK 100 MG IV ×2 (07:21→19:03)
[2024-02-13] MEDS: 0.9 % Sodium Chloride Flush 3 ML SYRINGE IVFLUSH ×3 (07:21→19:05)
--- NOTE | 2024-02-13 08:08 | PM.PNGS ---
Subjective Subjective Date of Service: 02/13/24 Interval history: Tolerating diet Ambulating down the hallway No fever Physical Exam Vital Signs: Vital Signs: Last Vital Signs Temp 97.4 F 02/13/24 07:06 Pulse 69 02/13/24 07:06 Resp 18 02/13/24 07:06 BP 138/88 02/13/24 07:06 Pulse Ox 92 02/13/24 07:06 O2 Del Method Room Air 02/13/24 07:06 O2 Flow Rate 2 02/11/24 14:50 BMI result Body Mass Index 39.6 Const: General: comfortable and no acute distress Resp: Effort & Inspection: normal respiratory effort Cardio: Rate: regular rate GI: Other: BRUNILDA drain with scanty serosanguineous Palpation (GI): Soft to palpation and not firm Objective Data Active Medications Acetaminophen (Acetaminophen 325 Mg Tablet) 650 mg PO Q6H PRN PRN Reason: Pain, Mild 1-3,fever,headache Last Admin: 02/13/24 04:16 Dose: 650 mg Documented By: BRITANY Calcium Carbonate (Calcium Carbonate 750 Mg Tab.Chew) 750 mg PO Q4H PRN PRN Reason: Heartburn Hydromorphone HCl (Hydromorphone Hcl 1 Mg/Ml Syringe) 0.5 mg IVPUSH Q4H PRN; Protocol PRN Reason: Pain, Severe (Pain Scale 7-10) Last Admin: 02/13/24 03:00 Dose: 0.5 mg Documented By: BRITANY Metronidazole (Flagyl) 500 mg in 100 mls @ 100 mls/hr IV Q12H [facility] Last Admin: 02/13/24 07:21 Dose: 100 mls/hr Documented By: ANA Levofloxacin (Levaquin) 500 mg in 100 mls @ 100 mls/hr IV Q24H [facility] Last Infusion: 02/12/24 13:36 Dose: Infused Documented By: ANA Vancomycin HCl 1,500 mg/ (Sodium Chloride) 500 mls @ 333.333 mls/hr IV Q12H [facility] Last Infusion: 02/13/24 00:30 Dose: Infused Documented By: BRITANY Magnesium Hydroxide (Milk Of Magnesia 30 Ml Oral.Susp) 30 ml PO DAILY PRN PRN Reason: Constipation Melatonin (Melatonin 3 Mg Tablet) 6 mg PO BEDTIME PRN PRN Reason: Insomnia Naloxone HCl (Naloxone Hcl 0.4 Mg/Ml Vial) 0.04 mg IVPUSH Q5M PRN PRN Reason: Excessive sedation or RR < 8 Ondansetron HCl (Ondansetron Hcl 4 Mg/2 Ml Vial) 4 mg IVPUSH Q8H PRN PRN Reason: Nausea and Vomiting Last Admin: 02/11/24 19:19 Dose: 4 mg Documented By: JORDAN Oxycodone HCl (Oxycodone Hcl Immed Release 5 Mg Tablet) 10 mg PO Q4H PRN PRN Reason: Pain, Moderate(Pain Scale 4-6) Last Admin: 02/13/24 04:16 Dose: 10 mg Documented By: BRITANY Pharmacy Consult (Consult Rx Vancomycin Dosing) 1 each MISCELLANE DAILY PRN PRN Reason: Consult order Sodium Chloride (0.9 % Sodium Chloride Flush 3 Ml Syringe) 3 ml IVFLUSH [facility] Last Admin: 02/13/24 07:21 Dose: 3 ml Documented By: ANA Labs 02/12/24 05:56 02/13/24 09:11 Microbiology Microbiology Results: Microbiology 02/10/24 Unknown Urine Culture - Final Urine clean catch - Clean Catch Midstream 02/10/24 19:07 Blood Culture - Preliminary Blood - Venous Prelim: GPC Gram Stain only 02/10/24 18:58 Blood Culture - Preliminary Blood - Venous Prelim: GPC Gram Stain only Procedures Date of Service Date of Service: 02/13/24 Progress Note: A&P Assessment and plan (1) Acute appendicitis: Status: Acute Assessment and Plan: Status post laparoscopic appendectomy, with gangrenous appendix Looks well Clinically doing well I told the patient that she can be discharged today when she feels ready We will pull out the BRUNILDA drain before she gets discharged We will continue antibiotics for now Time Spent With Patient Time: Total time managing care of this patient today ____ minutes. Quality Stroke Does the patient have a stroke diagnosis?: No VTE Prior VTE?: No VTE Risk Level:: Surgical - low VTE Device Contraindication: N/A - Device Ordered VTE Drug Contraindication: Treatment Not Indicated
[2024-02-13 09:40] LABS: Vancomycin Random 13.3 mcg/mL (15-20)
[2024-02-13 09:42] LABS: Creatinine Clr Calc Pharmacy 110.8; Estimated Glomerular Filt Rate > 60
--- NOTE | 2024-02-13 10:43 | HE.PHANOTE ---
RE: VANCO DOSING Trough came back as 13.3 mg/L which is subtherapeutic for bacteremia. Dose is increased to 1750 mg q12h, next trough is scheduled for 02/14/24@1000.
[2024-02-13] MEDS: levoFLOXacin/D5W 500 MG/100 ML PIGGYBACK 100 MG IV (11:05)
--- NOTE | 2024-02-13 11:40 | HO.POSTANES ---
Post Anesthesia Evaluation Post Anesthesia Evaluation Date of Service: 02/13/24 Vital Signs: Vital Signs Temp Pulse Resp BP Pulse Ox O2 Del Method 02/13/24 07:06 97.4 F 69 18 138/88 92 Room Air 02/13/24 02:56 96.8 F 69 16 171/84 H 95 Room Air Anesthesia: General Endotracheal-GETA Mental Status: Awake Pain Control: Satisfactory Nausea/Vomiting: None Hydration: Adequate Anesthesia-Related Issues: No Anes. Related Issues
[2024-02-13 12:00] VITALS: BP 154/73; PULSE 82; RESP 16; TEMP 36.6; O2SAT 95
[2024-02-13 12:41] VITALS: O2SAT 92
[2024-02-13] MEDS: vancomycin HCL 1,000 MG, vancomycin HCL 750 MG in 0.9 % Sodium Chloride 500 ML 267.5 MG IV ×2 (13:30→23:08)
--- NOTE | 2024-02-13 14:28 | PM.EVENT ---
Event Note Date of Service: 02/13/24 Event Note: Seen on afternoon rounds She says she is going home tomorrow and does not feel ready today Looks well Stable vital signs Abdomen is soft BRUNILDA drain serosanguineous Clinically doing well overall Time Spent With Patient Time: Total time managing care of this patient today ____ minutes.
[2024-02-13 15:17] VITALS: BP 133/75; PULSE 82; RESP 17; TEMP 36.4; O2SAT 96
[2024-02-13 19:09] VITALS: BP 139/75; PULSE 80; RESP 18; TEMP 36.3; O2SAT 96
[2024-02-14 00:04] VITALS: BP 177/86; PULSE 68; RESP 20; TEMP 36.6; O2SAT 96
[2024-02-14] MEDS: HYDROmorphone HCl 1 MG/ML SYRINGE 0.5 MG IVPUSH ×3 (00:05→19:58)
[2024-02-14] MEDS: ondansetron HCL 4 MG/2 ML VIAL IVPUSH (00:07)
[2024-02-14] MEDS: iohexoL 350 MG/ML 100 ML INFUS..BTL 85 ML IV (01:01)
[2024-02-14 01:13] LABS: Basophils Absolute Auto 0.1 X10*3/uL (0.0-0.2); Basophils Percent Auto 0.9 % (0-2); Eosinophils Absolute Auto 0.3 X10*3/uL (0.0-0.4); Eosinophils Percent Auto 4.1 % (0-4); Hematocrit 33.9 % (37.0-47.0); Hemoglobin 11.4 g/dl (12.0-16.0); Imm Gran Abs Auto 0.24 X10*3/uL (0.00-0.03); Imm Gran Pct Auto 3.1 % (0.0-0.4); Lymphocytes Percent Auto 25.8 % (20-40); Mean Corpuscular HGB Conc 33.6 g/dl (31.0-35.0); Mean Corpuscular Volume 89.2 fL (80.0-98.0); Mean Platelet Volume 10.4 fL (9.4-12.3); Monocytes Absolute Auto 0.7 X10*3/uL (0.1-1.2); Monocytes Percent Auto 8.9 % (2-11); Neutrophils Absolute Auto 4.4 x10*3/uL (2.0-8.3); Neutrophils Percent Auto 57.2 % (45-73); PLT CLUMP 1; Red Cell Distribution Width 13.8 % (11.0-16.0); SCAN SMEAR FLAG 1
[2024-02-14 01:17] LABS: MANUAL DIFF FLAG NO; White Blood Count 7.8 X10*3/uL (4.8-10.8)
[2024-02-14 01:21] LABS: Anion Gap 10 (12-20); Blood Urea Nitrogen 11 mg/dL (9-16); Calcium 8.2 mg/dL (8.4-10.2); Carbon Dioxide 23 mmol/L (22-29); Chloride 109 mmol/L (96-108); Creatinine Clr Calc Pharmacy 114.2; Estimated Glomerular Filt Rate > 60; Glucose Random 95 mg/dL (60-115); Potassium 3.5 mmol/L (3.3-5.1); Sodium 138 mmol/L (135-145)
[2024-02-14 01:24] LABS: Platelet Count 233 X10*3/uL (160-400)
--- NOTE | 2024-02-14 03:32 | PC.NURSE ---
Around 0000 pt c/o 10/10 pain and nausea, stating that it feels like something is ripping out of my stomach . Prn dilaudid and zofran given. [place] text to Dr. Gibson, hospitalist consult ordered, Dr. Mott at bedside to examine pt, labs ordered and stat CT ordered.
[2024-02-14 04:00] VITALS: BP 157/78; PULSE 74; RESP 16; TEMP 36.9; O2SAT 95
--- NOTE | 2024-02-14 06:37 | P.PNIM_ITS ---
Subjective Subjective Date of Service: 02/14/24 Interval History: seen after midnight for acute onset abdominal pain happened after she came back from bathroom, lower abdomen, no N\V\D. she had BM this morning Review of Systems Review of Systems: Yes all other systems are reviewed and are negative Physical Exam 2 Vital Signs: Vital Signs: Last Vital Signs Temp 98.4 F 02/14/24 04:00 Pulse 74 02/14/24 04:00 Resp 16 02/14/24 04:00 BP 157/78 H 02/14/24 04:00 Pulse Ox 95 02/14/24 04:00 O2 Del Method Room Air 02/14/24 04:00 O2 Flow Rate 2 02/11/24 14:50 BMI result Body Mass Index 39.6 Const: Other: Constitutional : Awake, interactive, not in distress Neck : Normal inspection, Supple Cardiovascular : RRR, no JVP, no lower extremity edema Respiratory : good bilateral air entry, no crackles, wheezes or rhonchi Gastrointestinal: soft, lax, generalized tenderness in right and left lower abd wall with no surgical signs or guarding Skin : Warm, Dry Neurological : Alert & oriented x3, No focal deficit Objective Data Active Medications Acetaminophen (Acetaminophen 325 Mg Tablet) 650 mg PO Q6H PRN PRN Reason: Pain, Mild 1-3,fever,headache Last Admin: 02/13/24 17:30 Dose: 650 mg Documented By: MATTY Calcium Carbonate (Calcium Carbonate 750 Mg Tab.Chew) 750 mg PO Q4H PRN PRN Reason: Heartburn Hydromorphone HCl (Hydromorphone Hcl 1 Mg/Ml Syringe) 0.5 mg IVPUSH Q4H PRN; Protocol PRN Reason: Pain, Severe (Pain Scale 7-10) Last Admin: 02/14/24 00:05 Dose: 0.5 mg Documented By: JORDAN Metronidazole (Flagyl) 500 mg in 100 mls @ 100 mls/hr IV Q12H [facility] Last Infusion: 02/13/24 20:06 Dose: Infused Documented By: JORDAN Levofloxacin (Levaquin) 500 mg in 100 mls @ 100 mls/hr IV Q24H [facility] Last Infusion: 02/13/24 12:17 Dose: Infused Documented By: MATTY Vancomycin HCl 1,000 mg/Vancomycin HCl 750 mg/ Sodium Chloride 535 mls @ 267.5 mls/hr IV Q12H [facility] Last Infusion: 02/14/24 01:42 Dose: Infused Documented By: JORDAN Magnesium Hydroxide (Milk Of Magnesia 30 Ml Oral.Susp) 30 ml PO DAILY PRN PRN Reason: Constipation Melatonin (Melatonin 3 Mg Tablet) 6 mg PO BEDTIME PRN PRN Reason: Insomnia Naloxone HCl (Naloxone Hcl 0.4 Mg/Ml Vial) 0.04 mg IVPUSH Q5M PRN PRN Reason: Excessive sedation or RR < 8 Ondansetron HCl (Ondansetron Hcl 4 Mg/2 Ml Vial) 4 mg IVPUSH Q8H PRN PRN Reason: Nausea and Vomiting Last Admin: 02/14/24 00:07 Dose: 4 mg Documented By: JORDAN Oxycodone HCl (Oxycodone Hcl Immed Release 5 Mg Tablet) 10 mg PO Q4H PRN PRN Reason: Pain, Moderate(Pain Scale 4-6) Last Admin: 02/13/24 17:30 Dose: 10 mg Documented By: MATTY Pharmacy Consult (Consult Rx Vancomycin Dosing) 1 each MISCELLANE DAILY PRN PRN Reason: Consult order Simethicone (Simethicone 80 Mg Tab.Chew) 80 mg PO QIDWMHS PRN PRN Reason: Gas Sodium Chloride (0.9 % Sodium Chloride Flush 3 Ml Syringe) 3 ml IVFLUSH QSHIFT [facility] Last Admin: 02/13/24 19:05 Dose: 3 ml Documented By: JORDAN Labs 02/14/24 00:41 02/14/24 00:41 Labs: Laboratory Results - last 24 hr 02/13/24 02/14/24 09:11 00:41 MCV 89.2 MCH 30.0 MCHC 33.6 RDW 13.8 Plt Count 233 MPV 10.4 Immature Gran % (Auto) 3.1 H Neut % (Auto) 57.2 Lymph % (Auto) 25.8 [place] % (Auto) 8.9 Eos % (Auto) 4.1 H Baso % (Auto) 0.9 Lymph # (Auto) 2.0 [place] # (Auto) 0.7 Eos # (Auto) 0.3 Baso # (Auto) 0.1 Abs Immat Gran (auto) 0.24 H Absolute Neuts (auto) 4.4 Absolute Nucleated RBC 0.000 Nucleated RBC % (auto) 0.0 Hold Purple Top SEE NOTE Anion Gap 10 L Estim Creat Clear Calc 110.8 114.2 Estimated GFR > 60 > 60 Random Glucose 95 Calcium 8.2 L Random Vancomycin 13.3 L Microbiology Microbiology Results: Microbiology 02/10/24 19:07 Blood Culture - Preliminary Blood - Venous Prelim: GPC Gram Stain only 02/10/24 18:58 Blood Culture - Preliminary Blood - Venous Prelim: GPC Gram Stain only Assessment and Plan (1) Bacteremia: Status: Acute (2) Status post laparoscopic appendectomy: Status: Acute (3) Abdominal pain: Status: Acute Plan A 48 yeats old lady with acute appendicitis post Lap appendectomy reporting acute onset abdominal pain. Abd pain of sudden onset post OP, positive blood cultures GPC abd soft and lax on Vancomycin for positive blood cultres To repeat blood cultures CT scan of abd showing bibasilar atelactasis (to use incentive spirometry) and emphysema in lower abd likely post Laparascopy. to be followed by surgical team who is aware of her condition Thank you for the consult will continue to follow with you Quality Stroke Does the patient have a stroke diagnosis?: No VTE Prior VTE?: No VTE Risk Level:: Surgical - low VTE Device Contraindication: N/A - Device Ordered VTE Drug Contraindication: Treatment Not Indicated
[2024-02-14] MEDS: oxyCODONE HCl Immed Release 5 MG TABLET 10 MG PO ×2 (07:03→10:46)
[2024-02-14] MEDS: 0.9 % Sodium Chloride Flush 3 ML SYRINGE IVFLUSH ×3 (07:04→22:19)
[2024-02-14] MEDS: metroNIDAZOLE/NS 500 MG/100 ML PIGGYBACK 100 MG IV (07:04)
[2024-02-14 07:39] VITALS: BP 166/86; PULSE 76; RESP 18; TEMP 36.5; O2SAT 95
--- NOTE | 2024-02-14 08:00 | PM.PNGS ---
Subjective Subjective Date of Service: 02/14/24 Interval history: She complained of sudden onset abdominal pain early this morning Describes this as something ripping off inside her abdomen Continues to tolerate diet Passing flatus Has had multiple loose stools Physical Exam Vital Signs: Vital Signs: Last Vital Signs Temp 97.7 F 02/14/24 07:39 Pulse 76 02/14/24 07:39 Resp 18 02/14/24 07:39 BP 166/86 H 02/14/24 07:39 Pulse Ox 95 02/14/24 07:39 O2 Del Method Room Air 02/14/24 07:39 O2 Flow Rate 2 02/11/24 14:50 BMI result Body Mass Index 39.6 Const: General: comfortable and no acute distress Resp: Effort & Inspection: normal respiratory effort Cardio: Rate: regular rate GI: Other: Incisions clean and dry, BRUNILDA drain serosanguineous Palpation (GI): Soft to palpation, not firm and no guarding Objective Data Active Medications Acetaminophen (Acetaminophen 325 Mg Tablet) 650 mg PO Q6H PRN PRN Reason: Pain, Mild 1-3,fever,headache Last Admin: 02/13/24 17:30 Dose: 650 mg Documented By: MATTY Calcium Carbonate (Calcium Carbonate 750 Mg Tab.Chew) 750 mg PO Q4H PRN PRN Reason: Heartburn Hydromorphone HCl (Hydromorphone Hcl 1 Mg/Ml Syringe) 0.5 mg IVPUSH Q4H PRN; Protocol PRN Reason: Pain, Severe (Pain Scale 7-10) Last Admin: 02/14/24 00:05 Dose: 0.5 mg Documented By: JORDAN Metronidazole (Flagyl) 500 mg in 100 mls @ 100 mls/hr IV Q12H [facility] Last Admin: 02/14/24 07:04 Dose: 100 mls/hr Documented By: MATTY Levofloxacin (Levaquin) 500 mg in 100 mls @ 100 mls/hr IV Q24H [facility] Last Infusion: 02/13/24 12:17 Dose: Infused Documented By: MATTY Vancomycin HCl 1,000 mg/Vancomycin HCl 750 mg/ Sodium Chloride 535 mls @ 267.5 mls/hr IV Q12H [facility] Last Infusion: 02/14/24 01:42 Dose: Infused Documented By: JORDAN Magnesium Hydroxide (Milk Of Magnesia 30 Ml Oral.Susp) 30 ml PO DAILY PRN PRN Reason: Constipation Melatonin (Melatonin 3 Mg Tablet) 6 mg PO BEDTIME PRN PRN Reason: Insomnia Naloxone HCl (Naloxone Hcl 0.4 Mg/Ml Vial) 0.04 mg IVPUSH Q5M PRN PRN Reason: Excessive sedation or RR < 8 Ondansetron HCl (Ondansetron Hcl 4 Mg/2 Ml Vial) 4 mg IVPUSH Q8H PRN PRN Reason: Nausea and Vomiting Last Admin: 02/14/24 00:07 Dose: 4 mg Documented By: JORDAN Oxycodone HCl (Oxycodone Hcl Immed Release 5 Mg Tablet) 10 mg PO Q4H PRN PRN Reason: Pain, Moderate(Pain Scale 4-6) Last Admin: 02/14/24 07:03 Dose: 10 mg Documented By: MATTY Pharmacy Consult (Consult Rx Vancomycin Dosing) 1 each MISCELLANE DAILY PRN PRN Reason: Consult order Simethicone (Simethicone 80 Mg Tab.Chew) 80 mg PO QIDWMHS PRN PRN Reason: Gas Sodium Chloride (0.9 % Sodium Chloride Flush 3 Ml Syringe) 3 ml IVFLUSH QSHIFT [facility] Last Admin: 02/14/24 07:04 Dose: 3 ml Documented By: MTATY Labs 02/14/24 00:41 02/14/24 00:41 Labs: Laboratory Results - last 24 hr 02/13/24 02/14/24 09:11 00:41 MCV 89.2 MCH 30.0 MCHC 33.6 RDW 13.8 Plt Count 233 MPV 10.4 Immature Gran % (Auto) 3.1 H Neut % (Auto) 57.2 Lymph % (Auto) 25.8 [place] % (Auto) 8.9 Eos % (Auto) 4.1 H Baso % (Auto) 0.9 Lymph # (Auto) 2.0 [place] # (Auto) 0.7 Eos # (Auto) 0.3 Baso # (Auto) 0.1 Abs Immat Gran (auto) 0.24 H Absolute Neuts (auto) 4.4 Absolute Nucleated RBC 0.000 Nucleated RBC % (auto) 0.0 Hold Purple Top SEE NOTE Anion Gap 10 L Estim Creat Clear Calc 110.8 114.2 Estimated GFR > 60 > 60 Random Glucose 95 Calcium 8.2 L Random Vancomycin 13.3 L Microbiology Microbiology Results: Microbiology 02/10/24 19:07 Blood Culture - Preliminary Blood - Venous Prelim: GPC Gram Stain only 02/10/24 18:58 Blood Culture - Preliminary Blood - Venous Prelim: GPC Gram Stain only Procedures Date of Service Date of Service: 02/14/24 Progress Note: A&P Assessment and plan (1) Acute appendicitis: Status: Acute Assessment and Plan: Status post appendectomy, had gangrenous appendix CT scan repeated early this morning because of complaints of sudden-onset abdominal pain I have reviewed her CAT scan - postop changes noted She looks well overall She however feels she is not ready to be discharged She did have positive blood cultures on admission because of her gangrenous appendix has had no fever since postop On vancomycin Followed by hospitalist service Plan to pull out BRUNILDA drain when she is ready to be discharged Check stools for C diff WBC normal await full culture results Time Spent With Patient Time: Total time managing care of this patient today ____ minutes. Quality Stroke Does the patient have a stroke diagnosis?: No VTE Prior VTE?: No VTE Risk Level:: Surgical - low VTE Device Contraindication: N/A - Device Ordered VTE Drug Contraindication: Treatment Not Indicated
[2024-02-14] MEDS: levoFLOXacin 500 MG TABLET PO (10:46)
[2024-02-14] MEDS: Acetaminophen 325 MG TABLET 650 MG PO (10:46)
[2024-02-14 11:05] LABS: CDiff Gene PCR NEGATIVE (Negative)
[2024-02-14 11:28] LABS: Vancomycin Random 13.5 mcg/mL (15-20)
--- NOTE | 2024-02-14 11:34 | HE.PHANOTE ---
BRIAN Changed dose to 1250mg Q8H per indication as patient's trough has been trending around 13 after a dose increase. Next trough 02/14@1000, predicted trough 17.7, AUC 574.
[2024-02-14] MEDS: vancomycin HCL 1,250 MG in 0.9 % Sodium Chloride 250 ML 166.67 MG IV ×2 (11:59→19:58)
--- NOTE | 2024-02-14 11:59 | P.EN_ITS ---
Event Note Date of Service: 02/14/24 Event Note: Patient is a 48-year-old female without significant PMH not on home medications who was admitted to general surgery services for acute appendicitis. Patient underwent emergent appendectomy of gangrenous appendix. Patient also bacteremic with 2/2 blood cultures positive for Gram-positive cocci in chains. Patient has been treated with vancomycin. Hospitalist consult for postsurgical hypertension. Patient seen and evaluated in her room where she is resting co mfortably in her bed. Patient is overall resistant and suspicious of medical intervention and has not seen PCP in approximately 10 years, and currently not on any home meds. Patient's BP normotensive prior to surgery, and intermittently elevated as high as 177/86, currently 166/86. Hypertension most likely transitory. Currently patient prefers to not take anymore medications and would like to just monitor BP. If BP remains elevated throughout today and again tomorrow morning, she is willing to temporarily take medication. Will place amlodipine 5 mg p.o. p.r.n. for SBP >170. Time Spent With Patient Time: Total time managing care of this patient today ____ minutes.
--- NOTE | 2024-02-14 14:53 | PM.EVENT ---
Event Note Date of Service: 02/14/24 Event Note: Seen on afternoon rounds Looks well Tolerating diet well Says diarrhea has resolved Stable vital signs No fever Abdomen soft BRUNILDA drain serosanguineous I therefore pulled out the BRUNILDA drain Discussed with hospitalist service - blood culture results not yet completed We will have to await full results of blood cultures before discharging home Clinically doing well Time Spent With Patient Time: Total time managing care of this patient today ____ minutes.
[2024-02-14 15:04] VITALS: BP 162/92; PULSE 65; RESP 18; TEMP 36.8; O2SAT 97
--- NOTE | 2024-02-14 16:32 | PC.NURSE ---
Mark drain removed by Dr Brandt. Dressing to mid-lower abdomen CDI
[2024-02-14 19:02] VITALS: BP 170/90; PULSE 78; RESP 16; TEMP 36.9; O2SAT 97
[2024-02-14] MEDS: metroNIDAZOLE 500 MG TABLET PO (19:58)
[2024-02-14 21:00] VITALS: BP 152/88
[2024-02-15 03:08] VITALS: RESP 18
[2024-02-15] MEDS: HYDROmorphone HCl 1 MG/ML SYRINGE 0.5 MG IVPUSH (03:08)
[2024-02-15] MEDS: vancomycin HCL 1,250 MG in 0.9 % Sodium Chloride 250 ML 166.67 MG IV (03:11)
[2024-02-15 03:26] VITALS: BP 140/76; PULSE 73; RESP 18; TEMP 36.4; O2SAT 94
[2024-02-15 06:53] LABS: Creatinine Clr Calc Pharmacy 107.6; Estimated Glomerular Filt Rate > 60
--- NOTE | 2024-02-15 07:48 | PM.PNGS ---
Subjective Subjective Date of Service: 02/15/24 Interval history: Patient had uneventful evening. Tolerating her diet. Ambulating. Wishes to be discharged home. Physical Exam Vital Signs: Vital Signs: Last Vital Signs Temp 97.5 F 02/15/24 03:26 Pulse 73 02/15/24 03:26 Resp 18 02/15/24 03:26 BP 140/76 H 02/15/24 03:26 Pulse Ox 94 02/15/24 03:26 O2 Del Method Room Air 02/15/24 03:26 O2 Flow Rate 2 02/11/24 14:50 BMI result Body Mass Index 39.6 GI: Other: Abdomen is soft, benign. All wounds clean dry and intact healing well Objective Data Active Medications Acetaminophen (Acetaminophen 325 Mg Tablet) 650 mg PO Q6H PRN PRN Reason: Pain, Mild 1-3,fever,headache Last Admin: 02/14/24 10:46 Dose: 650 mg Documented By: MATTY Amlodipine Besylate (Amlodipine Besylate 5 Mg Tablet) 5 mg PO DAILY PRN; Protocol PRN Reason: SBP >150 Calcium Carbonate (Calcium Carbonate 750 Mg Tab.Chew) 750 mg PO Q4H PRN PRN Reason: Heartburn Hydromorphone HCl (Hydromorphone Hcl 1 Mg/Ml Syringe) 0.5 mg IVPUSH Q4H PRN; Protocol PRN Reason: Pain, Severe (Pain Scale 7-10) Last Admin: 02/15/24 03:08 Dose: 0.5 mg Documented By: ANTONIO Vancomycin HCl 1,250 mg/ (Sodium Chloride) 250 mls @ 166.667 mls/hr IV Q8H [facility] Last Infusion: 02/15/24 04:41 Dose: Infused Documented By: ANTONIO Levofloxacin (Levofloxacin 500 Mg Tablet) 500 mg PO Q24H [facility] Last Admin: 02/14/24 10:46 Dose: 500 mg Documented By: MATTY Magnesium Hydroxide (Milk Of Magnesia 30 Ml Oral.Susp) 30 ml PO DAILY PRN PRN Reason: Constipation Melatonin (Melatonin 3 Mg Tablet) 6 mg PO BEDTIME PRN PRN Reason: Insomnia Metronidazole (Metronidazole 500 Mg Tablet) 500 mg PO Q12H [facility] Last Admin: 02/14/24 19:58 Dose: 500 mg Documented By: ANTONIO Naloxone HCl (Naloxone Hcl 0.4 Mg/Ml Vial) 0.04 mg IVPUSH Q5M PRN PRN Reason: Excessive sedation or RR < 8 Ondansetron HCl (Ondansetron Hcl 4 Mg/2 Ml Vial) 4 mg IVPUSH Q8H PRN PRN Reason: Nausea and Vomiting Last Admin: 02/14/24 00:07 Dose: 4 mg Documented By: JORDAN Oxycodone HCl (Oxycodone Hcl Immed Release 5 Mg Tablet) 10 mg PO Q4H PRN PRN Reason: Pain, Moderate(Pain Scale 4-6) Last Admin: 02/14/24 10:46 Dose: 10 mg Documented By: MATTY Pharmacy Consult (Consult Rx Vancomycin Dosing) 1 each MISCELLANE DAILY PRN PRN Reason: Consult order Simethicone (Simethicone 80 Mg Tab.Chew) 80 mg PO QIDWMHS PRN PRN Reason: Gas Sodium Chloride (0.9 % Sodium Chloride Flush 3 Ml [facility]ringe) [facility] Last Admin: 02/14/24 22:19 Dose: 3 ml Documented By: ANTONIO Labs 02/14/24 00:41 02/15/24 05:58 Labs: Laboratory Results - last 24 hr 02/14/24 02/14/24 02/15/24 08:00 10:47 05:58 Hold Purple Top SEE NOTE Estim Creat Clear Calc 107.6 Estimated GFR > 60 Random Vancomycin 13.5 L C. difficile Tox B Gene NEGATIVE Microbiology Microbiology Results: Microbiology 02/14/24 00:41 Blood Culture - Preliminary Blood - Venous No growth after 24 hours. Procedures Date of Service Date of Service: 02/15/24 Progress Note: A&P Assessment and plan (1) Status post laparoscopic appendectomy: Status: Acute Plan Patient will be discharged. Discharge instructions reviewed. All questions answered. Time Spent With Patient Time: Total time managing care of this patient today ____ minutes. Quality Stroke Does the patient have a stroke diagnosis?: No VTE Prior VTE?: No VTE Risk Level:: Surgical - low VTE Device Contraindication: N/A - Device Ordered VTE Drug Contraindication: Treatment Not Indicated
[2024-02-15 07:59] VITALS: BP 170/72; PULSE 76; RESP 18; TEMP 36.1; O2SAT 95
[2024-02-15] MEDS: metroNIDAZOLE 500 MG TABLET PO (08:01)
[2024-02-15] MEDS: oxyCODONE HCl Immed Release 5 MG TABLET 10 MG PO ×2 (08:01→14:05)
[2024-02-15] MEDS: 0.9 % Sodium Chloride Flush 3 ML SYRINGE IVFLUSH (08:01)
--- NOTE | 2024-02-15 08:29 | MHC.CM.PN ---
PT TO DC HOME TODAY WITH NO SERVICES VIA PRIVATE TRANSPORT
--- NOTE | 2024-02-15 08:52 | PC.NURSE ---
Patient is alert and oriented x 4, BP ELEVATED AT 170/72, PRN BP meds offered but pt. refused, stating her body needs time to heal by itself. Education about HTN given and advise to recheck BP at home regularly given. Pt. stated that she understood.
--- NOTE | 2024-02-15 11:13 | PC.NURSE ---
Pt. is argumentative, refusing some of the care including blood work, Provider notified.
[2024-02-15] MEDS: levoFLOXacin 500 MG TABLET PO (12:52)
[2024-02-15 13:12] LABS: Vancomycin Random 12.8 mcg/mL (15-20)
[2024-02-15] MEDS: vancomycin/NS 2,000 MG/500 ML PLAST..BAG 250 MG IV (13:45)
--- NOTE | 2024-02-15 15:24 | P.DS_ITS ---
DS: Providers Provider Date of Service: 02/15/24 Date of admission: 02/10/24 20:25 Date of discharge: 02/15/24 Primary care physician: Unknown Physician Attending physician on admission: Ron Brandt Consults: 02/14/24 00:25 Consult to Hospitalist Routine Comment: [place] [facility] [place] Reason For Exam: hypertension post appendectomy 02/15/24 10:22 Consult to Infectious Diseases Routine Consulting [place] [facility] [place] [facility] Reason for consultation: bacteremia; ganrenous cholecystitis Has provider been notified: No Attending physician on discharge: Ludwin Herrera DS: Diagnosis Discharge Diagnosis (1) Status post laparoscopic appendectomy: Status: Acute DS: Summary Hospital Course Hospital Course: HPI AT ADMISSION: Qian Pike is a 48 year old female who presents here with what she states has been 2 weeks of abdominal pain with nausea, vomiting, loose stool. She has finally decided to present to the emergency department for further investigation and evaluation. Workup which included CT scan demonstrated findings note of stranding around the appendix with appendicoliths consistent with uncomplicated acute appendicitis. Chart was reviewed and patient evaluated. Past surgical history tubal ligation. HOSPITAL COURSE: The patient was admitted to the surgical service for further treatment of the acute appendicitis. She was started on IVF and IV zosyn. She elected to proceed with laparoscopic appendectomy. She was added onto the OR schedule for that day. On 02/11/24, a laparoscopic appendectomy was performed by Dr. Brandt without complication. She was found to have acute gangrenous appendicitis, the entire appendix was gangrenous with severe induration and inflammatory changes surrounding the appendix. BRUNILDA drain was placed intraoperatively. The patient tolerated the procedure well. She had a slow recovery course. Hospitalist consult was placed for bacteremia. She had 2/2 blood cultures positive for Gram- positive cocci in chains and was treated with vanco. Repeat blood culture negative. She remained inpatient for IV abx and post operative pain. Her BRUNILDA drain had scant serosanguineous output and was removed prior to discharge. On the day of discharge (POD#4), she felt well and was tolerating a solid diet without nausea or vomiting, had good pain control and was ambulating without difficulty. She was hemodynamically stable. Her abdomen was benign with appropriate post op tenderness and clean incisions. She felt ready for discharge. She was discharged to home on 02/15/24 in stable condition. She is to follow up in the office in 2 weeks. Status at Discharge Functional status at discharge: independent ambulation Overall status at discharge: patient is progressing back to baseline Time Attestation Discharge Coordination Time (in mins): 35 Quality: Safe Use of Opioids Does Pt have an Active Cancer Diagnosis on the Problem List?: No Quality: Stroke Does the patient have a stroke diagnosis?: No Physical Exam Vital Signs: Vital Signs: Last Vital Signs Temp 97.0 F 02/15/24 07:59 Pulse 76 02/15/24 07:59 Resp 18 02/15/24 07:59 BP 170/72 H 02/15/24 07:59 Pulse Ox 95 02/15/24 07:59 O2 Del Method Room Air 02/15/24 07:59 O2 Flow Rate 2 02/11/24 14:50 BMI result Body Mass Index 39.6 Const: General: comfortable, no acute distress and alert GI: Inspection: No distended and Yes incision (clean) Palpation (GI): Soft to palpation DS: Data Data Completed and Pending Completed studies during hospitalization [Text1]: 02/11/24 13:32 Surgical [PTH] Routine Appendix, appendectomy: Acute gangrenous appendicitis with near perforation, extending to the proximal margin Discharge Plan Discharge Anticipated Discharge Date/Time: 02/11/24 18:39 Patient Disposition: Home, Self-Care Discharge Diagnosis: acute gangrenous appendicitis Referrals: Ron Brandt MD [Physician] - 2 Weeks Physician,Unknown J [Primary Care Provider] - 1 Week Discharge Medications: New ibuprofen 600 mg tablet 600 mg PO Q6H PRN (Reason: pain) Qty: 30 0RF oxycodone 5 mg tablet 5 mg PO Q4H PRN (Reason: pain) Qty: 25 0RF Rx Instructions: Partial Fill upon patient request. ibuprofen 600 mg tablet 600 mg PO Q6H PRN (Reason: pain) Qty: 30 0RF oxycodone 5 mg tablet 5 mg PO Q4H PRN (Reason: pain) Qty: 25 0RF Rx Instructions: Partial Fill upon patient request. levofloxacin 750 mg tablet 750 mg PO Q24H 10 Days Qty: 10 0RF Discharge Orders: Discharge Order (Routine); Ordered 02/15/24 Ordered By: Ludwin Herrera Diet: Advance to usual diet Activity on Discharge: No heavy lifting Stand Alone Forms: Patient Portal Discharge page Print Language: Mohawk Activity Restrictions/Additional Instructions: If the incision area is tender, you may apply an ice pack for short intervals (No more than 20 minutes on, followed by at least 20 minutes off). Do not apply heat. Do not use creams, lotions, or topical antibiotics unless instructed to do so by your surgeon. These can cause infection or allergic reaction. No lifting more than 20 lbs Okay to shower after starting Feb 12 Okay to change dressings with gauze or Band-Aid starting Feb 12 No strenuous activities Call the office for follow-up in 2 weeks - with Dr. Brandt Call Your Doctor If: -Your temperature exceeds 101.5? F -You experience excessive pain or swelling -You have an unexpected reaction to medication -You have excessive bleeding -You experience continued vomiting/nausea -Your incision begins to separate -Your incision shows signs of infection such as increased redness, swelling, excessive pain, drainage (light blood or clear fluid is normal) or heat Care Plan Goals: Returned to baseline Health Concerns: Postop pain Plan of Treatment: Oral pain med Assessment: Doing well Discharge Date/Time: 02/15/24 15:53
--- NOTE | 2024-02-15 15:38 | PC.NURSE ---
Paper prescriptions given to patient for Oxycodone, Ibuprofen, and Levoflaxin. Discharge instructions reviewed, patient stated to understand them. All questions answered.
== END 2024-02-15 15:53 | disposition home or self-care (01) | DRG 234 ==
LOC: HO.ED 20:42 → HO.EDOVER 21:01 → HO.S3 21:06
PROVIDERS: Internal Medicine; Physician Assistant; Surgery; Admitting Provider Surgery; Emergency Provider Emergency Medicine; Visit Provider Surgery
PROC: 0DTJ4ZZ Resection of Appendix, Percutaneous Endoscopic Approach (ICD-10-PCS; CPT 44970; principal; 2024-02-11 12:30)
DX: K35.891 Other acute appendicitis without perforation, with gangrene (principal); E66.01 Morbid (severe) obesity due to excess calories; F17.210 Nicotine dependence, cigarettes, uncomplicated; Z71.6 Tobacco abuse counseling; Z68.39 Body mass index [BMI] 39.0-39.9, adult
CPT/HCPCS: 36415; 74177; 80048; 80053; 80202; 81001; 81025; 82565; 83605; 83690; 84702; 85025; 85027; 85610; 85730; 86140; 87040; 87086; 87205; 87493; 88304; 99285; J0131; J0696; J0736; J1100; J1171; J1836; J1885; J1956; J2003; J2250; J2270; J2405; J2704; J2795; J3010; J3370; J3371; J7120; Q9967

== ENCOUNTER → 2024-02-10 20:25 | Outpatient (BNV) | payer MEDICAID, SELFPAY | PROVIDERS: Admitting Provider Surgery; Emergency Provider Emergency Medicine; Visit Provider Surgery | DX: Z90.49 Acquired absence of other specified parts of digestive tract (principal) | CPT/HCPCS: 44970; 99024; 99223; 99499 ==

== ENCOUNTER → 2024-02-10 20:25 | Outpatient (BNV) | payer MEDICAID, SELFPAY | PROVIDERS: Admitting Provider Surgery; Emergency Provider Emergency Medicine; Visit Provider Internal Medicine | DX: R10.9 Unspecified abdominal pain (principal); R78.81 Bacteremia; Z90.49 Acquired absence of other specified parts of digestive tract | CPT/HCPCS: 99232; 99499 ==